=== PATIENT | female | born 1965 | race Caucasian/White ===

== ENCOUNTER 2020-01-06 21:00 | Emergency (ER) | payer BC ==
[~2020-01-06] VITALS: Ht 157.5 cm; Wt 65.9 kg
[~2020-01-06 21:00] MED LIST: AMBIEN10 MG PO; COZAAR25 MG; LASIX20 MG; LASIX20 MG PO; SYNTHROID125 MCG PO; TYLENOL W/CODEI1 TAB PO
[2020-01-06 21:04] VITALS: Ht 157.5 cm; Wt 65.9 kg
[2020-01-06] MEDS ORDERED: ZOCOR40 MG PO (21:10)
[2020-01-06] MEDS ORDERED: CATAPRES0.1 MG PO (21:10)
[2020-01-06 22:16] LABS: APTT 27.2 SECONDS (22.8-39.4); INR 0.94 (0.85-1.17); PROTIME 12.6 SECONDS (11.6-15.0)
[2020-01-06 22:18] LABS: BASOPHILS 0.4 % (0-2); EOSINOPHILS 3.5 % (0-7); HEMATOCRIT 39.8 % (36.0-48.0); HEMOGLOBIN 13.4 g/dL (12-16); IMMATURE GRANULOCYTES 0.2 % (0-5); LYMPHOCYTES 33.1 % (15-50); MCH 29.8 pg (26.0-34.0); MCHC 33.7 g/dL (31.0-37.0); MCV 88.6 fL (80.0-100.0); MEAN PLATELET VOLUME 9.9 fL (7.4-10.4); MONOCYTES 10.5 % (2-11); NEUTROPHILS 52.3 % (40-80); PLATELET COUNT 250 10x3/uL (130-400); RBC 4.49 10x6/uL (4.00-5.40); RDW 13.2 % (11.5-14.5); WBC 4.8 10x3/uL (4.8-10.8)
[2020-01-06 22:26] LABS: CALC OSMOLALITY 281 mosm/kg (275-300); CARBON DIOXIDE 27.1 mmol/L (21.0-32.0); CHLORIDE - SERUM 107 mmol/L (98-107); CREATININE - SERUM 0.9 mg/dL (0.6-1.3); GLUCOSE 124 mg/dL (74-106); POTASSIUM - SERUM 3.5 mmol/L (3.5-5.1); SODIUM 140 mmol/L (136-145); UREA NITROGEN 17 mg/dL (7-18); eGFR NON AFRICAN AMERICAN 69 mL/min (90-120)
[2020-01-06 22:42] LABS: ALBUMIN 3.8 g/dL (3.4-5.0); ALKALINE PHOSPHATASE 84 U/L (30-120); ALT (SGPT) 30 U/L (10-68); BILIRUBIN - TOTAL 0.24 mg/dL (0.2-1.3); CKMB 0.2 U/L (0.0-3.6); CREATINE KINASE 62 UL (21-215); MAGNESIUM - SERUM 2.2 mg/dL (1.8-2.4); PROTEIN - SERUM 7.1 g/dL (6.4-8.2); T4 THYROXINE 13.9 ug/dL (4.7-13.3); THYROID STIMULATING HORMONE 1.64 uIU/mL (0.36-3.74)
[2020-01-06 22:43] LABS: TROPONIN-I < 0.017 ng/mL (0.000-0.060)
[2020-01-06] MEDS ORDERED: PROPAFENONE HC150 MG PO (22:51)
[2020-01-06 23:10] VITALS: BP 156/84
== END 2020-01-06 23:14 | disposition home or self-care (01) ==
LOC: D.ER 21:00
PROVIDERS: Emergency Medicine
DX: R00.2 Palpitations (principal); R74.8 Abnormal levels of other serum enzymes; E07.9 Disorder of thyroid, unspecified; I10 Essential (primary) hypertension

== ENCOUNTER → 2020-07-29 07:45 | Outpatient (CLI) | payer BC ==
[2020-01-06 21:04] VITALS: BMI 26.6
[~2020-07-29 07:45] MED LIST changes: +CATAPRES0.1 MG PO; +PROPAFENONE HC150 MG PO; +ZOCOR40 MG PO
== END | disposition home or self-care (01) ==
LOC: D.US 07:45
PROVIDERS: ATTEND Internal Medicine Gastroenterology
DX: R11.0 Nausea (principal)